=== PATIENT | female | born 1955 | race African-American/Black ===

== ENCOUNTER 2024-07-01 21:11 | Inpatient (IN) | payer OTHER ==
[2024-07-01 23:24] LABS: VENOUS BASE EXCESS -5.1 mmol/L (-2-2); VENOUS O2 SATURATION 64.5 % (70-80); VENOUS PCO2 41.6 mmHg (38-52); VENOUS PH 7.315 (7.310-7.410)
[2024-07-01 23:28] LABS: ABSOLUTE IMMATURE GRANULOCYTES 0.02 x10^3/uL (0.0-0.031); BASOPHILS # 0.02 x10^3/uL (0.01-0.08); EOSINOPHIL % 2.5 % (0.7-5.8); EOSINOPHILS # 0.16 x10^3/uL (0.04-0.36); HEMATOCRIT 25.9 % (34.1-44.9); HEMOGLOBIN 7.8 g/dL (11.2-15.7); MCHC 30.1 g/dl (32.2-35.5); MONOCYTE # 0.39 x10^3/uL (0.24-0.86); PLATELET COUNT 99 x10^3/uL (182-369); RDW 14.8 % (12.4-16.4)
[2024-07-01 23:34] LABS: INR 1.12 (0.83-1.09); PROTHROMBIN TIME (PATIENT) 12.2 SEC (9.7-13.0)
[2024-07-01] MEDS: LACTATED RINGERS SOLUTION 1000 ML INFUS.BAG IV ONE (23:34)
[2024-07-01 23:46] LABS: POTASSIUM 4.3 mmol/L (3.5-5.1)
[2024-07-01 23:49] LABS: ALBUMIN 3.6 g/dl (3.4-5.0); BLOOD UREA NITROGEN 22.1 mg/dL (7-18); MAGNESIUM 1.7 mg/dL (1.8-2.4)
[2024-07-01 23:52] LABS: CREATININE 1.8 mg/dL (0.55-1.3)
[2024-07-01 23:53] LABS: ACTIVATED PTT 18.1 SECONDS (25.2-36.5)
[2024-07-01 23:54] LABS: BILIRUBIN,TOTAL 0.5 mg/dL (0.2-1); TOT PROT 8.8 g/dl (6.4-8.2)
[2024-07-01 23:57] LABS: N-TERMINAL BNP 11658.8 pg/ml (5-125)
[2024-07-02] MEDS ORDERED: HEPARIN INFUSION - 25,000 UNITS/500 ML INFUS.BAG IVPB SCH (03:00)
[2024-07-02 03:08] LABS: EPI CELLS 18 /uL (0-25.1); HYALINE CASTS 2 /uL (0-3.1); URINE APPEARANCE CLOUDY; URINE BILIRUBIN NEGATIVE (NEGATIVE); URINE COLOR YELLOW; URINE GLUCOSE (UA) NEGATIVE (NEGATIVE); URINE KETONE TRACE (NEGATIVE); URINE LEUK ESTERASE NEGATIVE (NEGATIVE); URINE NITRITE NEGATIVE (NEGATIVE); URINE PROTEIN 2+ (NEGATIVE); URINE UROBILINOGEN 0.2 mg/dL (0.2-1.0); URINE WBC 35 /uL (0-25.8)
[2024-07-02 03:18] LABS: URINE AMPHETAMINES NEGATIVE (NEGATIVE)
[2024-07-02 03:19] LABS: METHADONE, UR NEGATIVE (NEGATIVE); OPIATES, URI NEGATIVE (NEGATIVE); PHENCYCLIDINE,URINE NEGATIVE (NEGATIVE); URINE BARBITURATES NEGATIVE (NEGATIVE); URINE BENZODIAZEPINES NEGATIVE (NEGATIVE)
[2024-07-02] MEDS ORDERED: HEPARIN INFUSION - 25,000 UNITS/500 ML INFUS.BAG IVPB ONE (03:29)
[2024-07-02 03:32] LABS: COCAINE, UR POSITIVE (NEGATIVE)
[2024-07-02] MEDS: DEXTROSE 5%-NORMAL SALINE 1,000 ML IV SCH (04:04)
[2024-07-02] MEDS: HEPARIN INFUSION - 25,000 UNITS/500 ML INFUS.BAG IVPB SCH (04:06)
[2024-07-02] MEDS: INSULIN ASPART SLIDING SCALE (NOVOLOG) 1 VIAL SQ SCH (08:15)
[2024-07-02] MEDS: HEPARIN NA (PORCINE) 5,000 UNITS/ML 1ML VIAL IVPUSH PRN ×2 (09:48→18:14)
[2024-07-02] MEDS: ASPIRIN COATED 81 MG TABLET.EC PO SCH (09:49)
[2024-07-02] MEDS: GABAPENTIN 300 MG CAPSULE PO SCH (09:49)
[2024-07-02] MEDS: MAGNESIUM 2GM/50ML STERILE WATER IVPB IVPB ONE (09:49)
[2024-07-02 13:00] LABS: LACTIC ACID 2.5 mmol/L (0.4-2.0)
[2024-07-02 17:53] LABS: ABSOLUTE IMMATURE GRANULOCYTES 0.02 x10^3/uL (0.0-0.031); BASOPHILS # 0.01 x10^3/uL (0.01-0.08); EOSINOPHIL % 4.6 % (0.7-5.8); EOSINOPHILS # 0.24 x10^3/uL (0.04-0.36); HEMATOCRIT 23.9 % (34.1-44.9); HEMOGLOBIN 7.1 g/dL (11.2-15.7); MCHC 29.7 g/dl (32.2-35.5); MEAN CELL VOLUME 88.8 fl (79.4-94.8); MEAN PLT VOLUME 11.2 fl (9.4-12.3); MONOCYTE % 5.8 % (4.7-12.5); PLATELET COUNT 93 x10^3/uL (182-369); RDW 14.9 % (12.4-16.4)
[2024-07-02 18:26] LABS: POTASSIUM 3.9 mmol/L (3.5-5.1)
[2024-07-02 18:28] LABS: BLOOD UREA NITROGEN 20.2 mg/dL (7-18); MAGNESIUM 2.2 mg/dL (1.8-2.4)
[2024-07-02 18:31] LABS: PHOSPHOROUS 3.1 mg/dL (2.5-4.9)
[2024-07-02 18:32] LABS: CREATININE 1.7 mg/dL (0.55-1.3)
[2024-07-02 18:33] LABS: BILIRUBIN,TOTAL 0.4 mg/dL (0.2-1); TOT PROT 6.8 g/dl (6.4-8.2)
[2024-07-02 18:35] LABS: ALBUMIN 2.9 g/dl (3.4-5.0)
[2024-07-03 07:52] LABS: HEMATOCRIT 22.5 % (34.1-44.9); HEMOGLOBIN 6.8 g/dL (11.2-15.7); MCHC 30.2 g/dl (32.2-35.5); MEAN CELL VOLUME 88.6 fl (79.4-94.8); MEAN PLT VOLUME 11.3 fl (9.4-12.3); PLATELET COUNT 100 x10^3/uL (182-369); RDW 14.9 % (12.4-16.4)
[2024-07-03 08:08] LABS: POTASSIUM 4.2 mmol/L (3.5-5.1)
[2024-07-03 08:10] LABS: INR 1.08 (0.83-1.09); PROTHROMBIN TIME (PATIENT) 11.8 SEC (9.7-13.0)
[2024-07-03 08:14] LABS: CALCIUM 8.5 mg/dL (8.5-10.1)
[2024-07-03 08:15] LABS: ALBUMIN 3.2 g/dl (3.4-5.0); BLOOD UREA NITROGEN 20.4 mg/dL (7-18)
[2024-07-03 08:17] LABS: CREATININE 1.9 mg/dL (0.55-1.3)
[2024-07-03 08:18] LABS: BILIRUBIN,TOTAL 0.4 mg/dL (0.2-1)
[2024-07-03 08:19] LABS: MAGNESIUM 1.9 mg/dL (1.8-2.4)
[2024-07-03 08:19] LABS: TOT PROT 7.8 g/dl (6.4-8.2)
[2024-07-03 08:56] VITALS: BMI 19.0
[2024-07-03] MEDS ORDERED: PANTOPRAZOLE 40 MG TABLET PO SCH (10:00)
[2024-07-03] MEDS: PANTOPRAZOLE SODIUM 40 MG VIAL IVPUSH SCH (10:44)
[2024-07-03 10:51] LABS: HEMOGLOBIN 6.4 g/dL (11.2-15.7); MCHC 30.5 g/dl (32.2-35.5); MEAN CELL VOLUME 88.6 fl (79.4-94.8); MEAN PLT VOLUME 11.2 fl (9.4-12.3); PLATELET COUNT 94 x10^3/uL (182-369); RDW 15.1 % (12.4-16.4)
[2024-07-03] MEDS: ATORVASTATIN CA 20 MG TABLET (FP) PO SCH (22:13)
[2024-07-04 01:56] LABS: HEMATOCRIT 26.3 % (34.1-44.9); HEMOGLOBIN 8.3 g/dL (11.2-15.7); MCHC 31.6 g/dl (32.2-35.5); MEAN CELL VOLUME 86.5 fl (79.4-94.8); MEAN PLT VOLUME 10.4 fl (9.4-12.3); PLATELET COUNT 94 x10^3/uL (182-369); RDW 14.9 % (12.4-16.4)
[2024-07-04 08:36] LABS: HEMATOCRIT 27.6 % (34.1-44.9); HEMOGLOBIN 8.6 g/dL (11.2-15.7); MCHC 31.2 g/dl (32.2-35.5); MEAN CELL VOLUME 86.5 fl (79.4-94.8); MEAN PLT VOLUME 10.8 fl (9.4-12.3); PLATELET COUNT 109 x10^3/uL (182-369); RDW 15.6 % (12.4-16.4)
[2024-07-04 08:40] LABS: Reticulocyte % 1.36 % (0.5-1.7)
[2024-07-04 09:18] LABS: ALBUMIN 2.9 g/dl (3.4-5.0); BLOOD UREA NITROGEN 24.1 mg/dL (7-18); CALCIUM 8.8 mg/dL (8.5-10.1); MAGNESIUM 1.9 mg/dL (1.8-2.4)
[2024-07-04 09:22] LABS: CREATININE 2.8 mg/dL (0.55-1.3)
[2024-07-04 09:23] LABS: BILIRUBIN,TOTAL 0.8 mg/dL (0.2-1); TOT PROT 6.9 g/dl (6.4-8.2)
[2024-07-04] MEDS: SODIUM CHLORIDE 1,000 ML IV SCH (22:07)
[2024-07-05 07:00] LABS: HEMATOCRIT 25.2 % (34.1-44.9); HEMOGLOBIN 7.9 g/dL (11.2-15.7); MCHC 31.3 g/dl (32.2-35.5); MEAN CELL VOLUME 86.9 fl (79.4-94.8); MEAN PLT VOLUME 10.9 fl (9.4-12.3); PLATELET COUNT 115 x10^3/uL (182-369); RDW 15.6 % (12.4-16.4)
[2024-07-05 07:22] LABS: BLOOD UREA NITROGEN 26.5 mg/dL (7-18)
[2024-07-05 07:25] LABS: CALCIUM 8.2 mg/dL (8.5-10.1); CREATININE 3.4 mg/dL (0.55-1.3); POTASSIUM 4.1 mmol/L (3.5-5.1)
[2024-07-05] MEDS: POLYETHYLENE GLYCOL (HEALTHYLAX) 3350 17 GM PACKET PO SCH (10:45)
[2024-07-05] MEDS: SODIUM CHLORIDE 1,000 ML IV SCH (10:45)
[2024-07-05 15:37] LABS: HEMATOCRIT 24.3 % (34.1-44.9); HEMOGLOBIN 7.6 g/dL (11.2-15.7); MCHC 31.3 g/dl (32.2-35.5); MEAN CELL VOLUME 86.5 fl (79.4-94.8); MEAN PLT VOLUME 10.2 fl (9.4-12.3); PLATELET COUNT 106 x10^3/uL (182-369); RDW 15.3 % (12.4-16.4)
[2024-07-05 16:23] LABS: EPI CELLS 10 /uL (0-25.1); HYALINE CASTS 1 /uL (0-3.1); URINE APPEARANCE CLOUDY; URINE BACTERIA 562 /uL (0-1359); URINE BILIRUBIN NEGATIVE (NEGATIVE); URINE COLOR YELLOW; URINE GLUCOSE (UA) TRACE (NEGATIVE); URINE KETONE NEGATIVE (NEGATIVE); URINE LEUK ESTERASE NEGATIVE (NEGATIVE); URINE NITRITE NEGATIVE (NEGATIVE); URINE PROTEIN 1+ (NEGATIVE); URINE UROBILINOGEN 0.2 mg/dL (0.2-1.0)
[2024-07-05 16:51] LABS: URINE RBC 113.1 /uL (0-23.9)
[2024-07-05] MEDS: ACETAMINOPHEN 325 MG TABLET (FP) PO PRN (16:55)
[2024-07-05 17:06] LABS: FREE KAPPA,SERUM 99.5 mg/L (3.3-19.4)
[2024-07-05 17:44] LABS: HEMATOCRIT 23.3 % (34.1-44.9); HEMOGLOBIN 7.3 g/dL (11.2-15.7); MCHC 31.3 g/dl (32.2-35.5); MEAN CELL VOLUME 86.6 fl (79.4-94.8); MEAN PLT VOLUME 10.5 fl (9.4-12.3); PLATELET COUNT 112 x10^3/uL (182-369); RDW 15.3 % (12.4-16.4)
[2024-07-05] MEDS ORDERED: PIPERACILLIN/TAZOB 2.25 GM 2.25 GM in DEXTROSE 5%-WATER - 50 ML IVPB SCH (19:00)
[2024-07-05] MEDS: FUROSEMIDE 40 MG TABLET (FP) PO ONE (19:02)
[2024-07-05] MEDS ORDERED: PIPERACILLIN/TAZOB 2.25 GM 2.25 GM/50 ML BAG IVPB SCH (20:15)
[2024-07-05] MEDS: ACETAMINOPHEN 1000 MG/100 ML BAG IVPB ONE (20:30)
[2024-07-05] MEDS: PIPERACILLIN/TAZOB 2.25 GM 2.25 GM/50 ML BAG IVPB SCH (21:28)
[2024-07-06] MEDS: ALBUTEROL SO4 2.5/IPRATROPIUM 0.5 INH SOL 3 ML VIAL.NEB. NEB ONE (06:30)
[2024-07-06 07:46] LABS: POTASSIUM 4.4 mmol/L (3.5-5.1)
[2024-07-06 07:54] LABS: ALBUMIN 2.6 g/dl (3.4-5.0); BLOOD UREA NITROGEN 28.7 mg/dL (7-18); PHOSPHOROUS 4.5 mg/dL (2.5-4.9)
[2024-07-06 07:55] LABS: CALCIUM 8.1 mg/dL (8.5-10.1); MAGNESIUM 1.8 mg/dL (1.8-2.4); TOT PROT 6.6 g/dl (6.4-8.2)
[2024-07-06 08:01] LABS: BILIRUBIN,TOTAL 1.1 mg/dL (0.2-1)
[2024-07-06 08:04] LABS: HEMATOCRIT 30.9 % (34.1-44.9); HEMOGLOBIN 9.6 g/dL (11.2-15.7); MCHC 31.1 g/dl (32.2-35.5); MEAN CELL VOLUME 89.3 fl (79.4-94.8); PLATELET COUNT 123 x10^3/uL (182-369)
[2024-07-06] MEDS: ACETAMINOPHEN 1000 MG/100 ML BAG IVPB PRN (12:27)
[2024-07-06 13:41] LABS: Reticulocyte % 1.44 % (0.5-1.7)
[2024-07-06] MEDS: VANCOMYCIN 1 GM PREMIX (F) 1 GM/200 ML BAG IVPB ONE (15:14)
[2024-07-07 07:13] LABS: HEMATOCRIT 29.9 % (34.1-44.9); HEMOGLOBIN 9.6 g/dL (11.2-15.7); MCHC 32.1 g/dl (32.2-35.5); MEAN CELL VOLUME 87.7 fl (79.4-94.8); MEAN PLT VOLUME 10.8 fl (9.4-12.3); PLATELET COUNT 167 x10^3/uL (182-369); RDW 15.3 % (12.4-16.4)
[2024-07-07 07:41] LABS: ALBUMIN 2.5 g/dl (3.4-5.0); CALCIUM 8.7 mg/dL (8.5-10.1); POTASSIUM 4.4 mmol/L (3.5-5.1)
[2024-07-07 07:42] LABS: BLOOD UREA NITROGEN 26.5 mg/dL (7-18); MAGNESIUM 1.7 mg/dL (1.8-2.4)
[2024-07-07 07:45] LABS: CREATININE 2.4 mg/dL (0.55-1.3)
[2024-07-07 07:46] LABS: BILIRUBIN,TOTAL 0.8 mg/dL (0.2-1); TOT PROT 6.7 g/dl (6.4-8.2)
[2024-07-07] MEDS: MAGNESIUM 2GM/50ML STERILE WATER IVPB IVPB ONE (09:05)
[2024-07-07] MEDS: VANCOMYCIN/WATER FOR INJ (PEG) 1,000 MG/200 ML BAG IVPB ONE (15:56)
[2024-07-08 07:36] LABS: HEMATOCRIT 27.3 % (34.1-44.9); HEMOGLOBIN 8.7 g/dL (11.2-15.7); MCHC 31.9 g/dl (32.2-35.5); MEAN CELL VOLUME 88.3 fl (79.4-94.8); MEAN PLT VOLUME 10.7 fl (9.4-12.3); PLATELET COUNT 184 x10^3/uL (182-369); RDW 15.6 % (12.4-16.4)
[2024-07-08 07:52] LABS: POTASSIUM 4.4 mmol/L (3.5-5.1)
[2024-07-08 07:57] LABS: BLOOD UREA NITROGEN 18.8 mg/dL (7-18); CALCIUM 8.3 mg/dL (8.5-10.1)
[2024-07-08 08:01] LABS: CREATININE 1.7 mg/dL (0.55-1.3)
[2024-07-08 18:07] LABS: IG A QN SERUM. 183 mg/dL (87-352)
[2024-07-08] MEDS: APIXABAN 5 MG TABLET PO SCH (21:21)
[2024-07-08] MEDS: VANCOMYCIN/WATER FOR INJ (PEG) 1,000 MG/200 ML BAG IVPB ONE (21:21)
[2024-07-08] MEDS: POLYETHYLENE GLYCOL (HEALTHYLAX) 3350 17 GM PACKET PO SCH (21:22)
[2024-07-09 06:41] LABS: HEMATOCRIT 28.2 % (34.1-44.9); HEMOGLOBIN 9.1 g/dL (11.2-15.7); MCHC 32.3 g/dl (32.2-35.5); MEAN CELL VOLUME 87.6 fl (79.4-94.8); MEAN PLT VOLUME 10.1 fl (9.4-12.3); PLATELET COUNT 228 x10^3/uL (182-369); RDW 15.1 % (12.4-16.4)
[2024-07-09 07:04] LABS: POTASSIUM 4.3 mmol/L (3.5-5.1)
[2024-07-09 07:15] LABS: BLOOD UREA NITROGEN 14.7 mg/dL (7-18); CALCIUM 8.4 mg/dL (8.5-10.1)
[2024-07-09 07:19] LABS: CREATININE 1.6 mg/dL (0.55-1.3)
[2024-07-09] MEDS: PIPERACILLIN/TAZOB 2.25 GM 2.25 GM in DEXTROSE 5%-WATER - 50 ML IVPB SCH (12:48)
[2024-07-09 14:10] VITALS: BP 128/100; PULSE 82; RESP 19; TEMP 97.9
== END 2024-07-09 16:58 | DRG 64 ==
LOC: JER 21:11 → JERBED 21:59 → J4W 07-02 06:18
PROVIDERS: ADMIT Hospitalist; ATTEND Student in an Organized Health Care Education/Training Program
PROC: 30233N1 Transfusion of Nonautologous Red Blood Cells into Peripheral Vein, Percutaneous Approach (ICD-10-PCS; principal; 2024-07-03)
DX: I63.89 Other cerebral infarction (principal); I21.4 Non-ST elevation (NSTEMI) myocardial infarction; I26.99 Other pulmonary embolism without acute cor pulmonale; J69.0 Pneumonitis due to inhalation of food and vomit; N17.9 Acute kidney failure, unspecified; M62.82 Rhabdomyolysis; E44.0 Moderate protein-calorie malnutrition; Z68.1 Body mass index [BMI] 19.9 or less, adult; D64.9 Anemia, unspecified; E11.9 Type 2 diabetes mellitus without complications; F03.90 Unspecified dementia, unspecified severity, without behavioral disturbance, psychotic disturbance, mood disturbance, and anxiety; R33.8 Other retention of urine; R19.00 Intra-abdominal and pelvic swelling, mass and lump, unspecified site; K59.00 Constipation, unspecified; I34.89 Other nonrheumatic mitral valve disorders
CPT/HCPCS: 0241U-QW; 36415; 36430; 70450-TC; 70544-TC; 70551-TC; 71045-TC-FY; 71275-TC; 72125-TC; 74018-TC-FY; 74176-TC; 80048; 80053; 80061; 80307; 81003; 82010; 82140; 82272; 82306; 82550; 82553; 82570; 82728; 82784; 82803; 82962; 83010; 83036; 83540; 83550; 83605; 83615; 83690; 83735; 83880; 83883; 84100; 84155; 84165; 84300; 84484; 85025; 85027; 85610; 85730; 86160; 86850; 86900; 86901; 86922; 87040; 87081; 87086; 93005; 93010; 93306-TC; 93880-TC; 94640; 97116-GP; 97162-GP; 99285-25; G0480; J0131; J1644; P9058; Q9967